=== PATIENT | male | born 1960 | race Caucasian/White ===

== ENCOUNTER → 2016-10-30 | Outpatient (CLI) | payer BC, OTHER ==
[~2016-10-30] MED LIST: IBUP-1050 PO
--- NOTE | 2016-10-30 09:37 | DIAGNOSTIC IMAGING REPORT ---
RIGHT KNEE 4 OR MORE CLINICAL HISTORY: RIGHT KNEE PAIN Right COMPARISON STUDY: None. FINDINGS: Right-sided bipartite patella. Mild cartilage space narrowing and tiny marginal osteophytes at the medial compartments of the knees. No fracture or dislocation. Small knee effusion. Tiny marginal osteophytes in the patella. IMPRESSION: Mild osteoarthritis within the medial compartment of the bilateral knees. Small right knee effusion. Electronically signed by: Chidi Watters M.D. 10/30/2016 9:35 AM Dictated Date/Time: 10/30/2016 9:28 AM
== END | disposition home or self-care (01) ==
LOC: C.RDSM 12:29
PROVIDERS: ATTEND Family Medicine
DX: M17.11 Unilateral primary osteoarthritis, right knee (principal); M17.12 Unilateral primary osteoarthritis, left knee

== ENCOUNTER → 2016-11-06 | Outpatient (CLI) | payer OTHER, BC ==
--- NOTE | 2016-11-06 14:28 | DIAGNOSTIC IMAGING REPORT ---
MRI OF THE RIGHT KNEE CLINICAL HISTORY: Right knee pain. Recent knee injury. COMPARISON STUDY: Radiographs of the right knee dated 10/30/2016. TECHNIQUE: MRI of the right knee was performed utilizing proton density, T1, and T2-weighted sequences in the axial, sagittal, coronal planes. IV contrast was not administered for this examination. FINDINGS: Menisci: There is a large oblique tear involving the body and posterior horn of the medial meniscus. The lateral meniscus is Intact. Ligaments: The anterior and posterior cruciate ligaments are intact. There is thickening and irregularity of the medial collateral ligament suggesting age indeterminant injury. The fibers are intact and there is no significant surrounding fluid. The lateral collateral ligament complex is preserved. Extensor mechanism: The extensor mechanism is intact. Hoffa's fat pad is normal in appearance. 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 There is no MRI evidence of fracture. There is mild (less than 50%) degenerative thinning and fissuring identified within the articular cartilage along the weightbearing surface in the medial and lateral compartments. This is greater medially. There is minimal cartilaginous irregularity seen along the lateral patellar facet at the site of the bipartite patella. The cartilage appears intact. There is significant marrow edema within the medial tibial plateau, with milder marrow edema seen within the medial femoral condyle. A small degenerative geode is identified within the posterolateral femoral condyle on axial image #11 with mild surrounding marrow edema. Joint effusion: There is a moderate joint effusion. Small joint bodies are questioned lung the medial femoral condyle on axial image #12. Soft tissues: A small popliteal cyst measures up to 3.7 cm. The musculature surrounding the knee joint is normal in bulk and signal intensity. There is mild prepatellar soft tissue edema, as well as deep soft tissue edema no medial knee. IMPRESSION: 1. There is a large oblique tear involving the body and posterior horn of the medial meniscus. 2. There is significant marrow edema identified within the medial tibial plateau with milder marrow edema seen in the medial femoral condyle. Although this could be on degenerative basis, the appearance is more typical for contusion. Clinical correlation will be required. 3. Joint effusion and popliteal cyst. Small joint bodies are questioned. 4. Findings suggest age indeterminate and possibly chronic low-grade injury of the medial collateral ligament. The fibers are intact. 5. The lateral meniscus, the lateral collateral complex, and the cruciate ligament are preserved. 6. 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 The underlying cartilage appears irregular but intact. 7. Mild arthritic change as above. Electronically signed by: Jose Damon M.D. 11/06/2016 2:26 PM Dictated Date/Time: 11/06/2016 2:17 PM
== END | disposition home or self-care (01) ==
LOC: C.MRI 13:01
PROVIDERS: ATTEND Family Medicine
DX: S83.241A Other tear of medial meniscus, current injury, right knee, initial encounter (principal); X58.XXXA Exposure to other specified factors, initial encounter

== ENCOUNTER → 2016-11-27 | Day surgery (SDC) | payer OTHER, BC ==
[2016-11-16 07:54] VITALS: Ht 182.9 cm; Wt 109.1 kg
[2016-11-22 12:07] LABS: HEMATOCRIT 47.1 % (42-52); MEAN CELL VOLUME 93.6 fL (80-100); MEAN CORPUSCULAR HEMOGLOBIN 33.4 pg (25-34); MEAN CORPUSCULAR HGB CONC 35.7 g/dl (32-36); MEAN PLATELET VOLUME 10.2 fL (7.4-10.4); PLATELET COUNT 236 K/uL (130-400); RED BLOOD COUNT 5.03 M/uL (4.7-6.1); WHITE BLOOD COUNT 7.76 K/uL (4.8-10.8)
[~2016-11-27] VITALS: Ht 182.9 cm; Wt 109.1 kg
[~2016-11-27] MED LIST changes: +ATROPINE SULFATE 0.1 MG/ML 5ML SYR IV PRN; +BUPIVACAINE/EPINEPHRINE 0.5% MPF 1:200,000 30 ML VIAL ONE; +CEFAZOLIN 2000 MG/60 ML D5W IV SCH; +DEXAMETHASONE SOD INJ 4 MG/ML VIAL ONE; +EpHEDrine SULFATE INJ 50 MG/ML AMP IV PRN; +EpINEphrine INJ 1MG/ML AMP 1 MG/ML AMP ONE; +FENTANYL CITRATE INJ 50 MCG/1 ML 2 ML VIAL IV PRN; +FENTANYL CITRATE INJ 50 MCG/1 ML 2 ML VIAL ONE; +FLUMAZENIL 0.1 MG/1 ML 10 ML VIAL IV PRN; +HYDROmorphone INJ 2 MG/ML SYR/VIAL IV PRN; +LABETALOL HCL IV 5 MG/ML 20ML IV PRN; +LACTATED RINGER'S 1000ML 1,000 ML IV SCH; +LIDOCAINE HCL 1% 20 ML VIAL ONE; +LIDOCAINE HCL 2% 2 ML VIAL (20MG/ML) ONE; +MEPERIDINE HCL 25 MG/ML CARP IV PRN; +MIDAZOLAM HCL 1 MG/ML 2ML VIAL ONE; +MoRPHine SULFATE 2 MG/ML CARP IV PRN; +MoRPHine SULFATE 4 MG/ML 1 ML CARP\\VIAL IV PRN; +NALOXONE HCL 0.4 MG/1 ML VIAL/CARP IV PRN; +ONDANSETRON INJ 2 MG/ML 2 ML VIAL IV PRN; +ONDANSETRON INJ 2 MG/ML 2 ML VIAL ONE; +OXYCODONE/ACETAMINOPHEN 5-325 TAB PO PRN; +PHENYLEPHRINE 100MCG/ML 5ML SYR IV PRN; +PROPOFOL IV EMULSION 10 MG/ML 20 ML VIAL IV ONE
--- NOTE | 2016-11-27 09:16 | History & Physical Bridge - [place] ---
H&P Re-Evaluation Bridge Note: I have examined the patient, reviewed the History & Physical and in the interval since the performance of the History & Physical I have noted the following changes of clinical significance: No changes noted
--- NOTE | 2016-11-27 10:36 | Discharge Instructions-SurgCtr ---
Discharge Instructions Date of Service November 27, 2016. Visit Reason for Visit: Right Knee Meniscus Tear;Pre-Op Discharge Discharge Diagnosis / Problem: Status post R knee Arthroscopy debridment, chondroplasty, loose body remova Discharge Goals Goal(s): Decrease discomfort, Improve function, Increase independence Activity Recommendations Activity Limitations: per Instructions/Follow-up section Exercise/Sports Limitations: gradually increase as tolerated May Resume Sexual Activity: when tolerated Shower/Bathe: may shower/bathe in 3 days Driving or Machine Use: Not while on narcotics, and should be walking normally Weightbearing Status: Right weightbearing (as tolerated) Anesthesia . Post Anesthesia Instructions: If you have had General Anesthesia or IV Sedation: * Do not drive today. * Resume driving when surgeon permits. * Do not make important decisions or sign legal documents today. * Call surgeon for: 1. Temperature elevations greater than 101 degrees F. 2. Uncontrollable pain. 3. Excessive bleeding. 4. Persistent nausea and vomiting. 5. Medication intolerance (nausea, vomiting or rash). * For nausea and vomiting use only clear liquids such as: tea, soda, bouillon until nausea subsides, then gradually increase diet as tolerated. * If you have any concerns or questions, call your surgeon's office. If physician is unavailable and it is an emergency, call 911 or go to the nearest emergency room. . Instructions / Follow-Up Instructions / Follow-Up Dr. Atkins in 10-15 days. PT in 2-3 days. Diet Recommendations Home Diet: resume previous diet Procedures Procedures Performed: Right Knee Arthroscopic Meniscus Debridement, Partial medial & lateral menisectomies, Chondroplasty, Loose body removal, Exam Under Anesthesia Pending Studies Studies pending at discharge: no Medical Emergencies . Who to Call and When: Medical Emergencies: If at any time you feel your situation is an emergency, please call 911 immediately. . Non-Emergent Contact Non-Emergency issues call your: Surgeon Call Non-Emergent contact if: temperature is above 101.5, your pain is not controlled, wound has increased drainage, wound has increased redness . . "Provider Documentation" section prepared by Stone Atkins. .
--- NOTE | 2016-11-27 10:39 | [facility] Operative Report ---
Operative Report Operative Date November 27, 2016. Pre-Operative Diagnosis Right knee medial meniscus tear, chondromalcia, synovitis, loose body Post-Operative Diagnosis same with synovitis, loose bodies, and lateral meniscus tear. Procedure(s) Performed 1) Right Knee Arthroscopic Chondroplasty: Patella & MFC, & partial Medial meniscectomy. 2) Loose body removal. 3) Partial Lateral Meniscectomy. 4) Exam Under Anesthesia. Surgeon Dr Atkins Hiv Counselor Surgeon(s) Misael Mathew PA-C Estimated Blood Loss 3 ml Findings The right knee was examined under anesthesia. Range of motion was 0-130. Ligamentous examination exhibited: stable Sean, posterior drawer, varus and valgus stress at 0 & 30 degrees. ARTHROSCOPIC FINDINGS: There was significant synovitis in the suprapatellar pouch. 1) PATELLOFEMORAL JOINT: The articular cartilage of the Patella had Outerbridge type II changes and Trochlea was intact. 2) GUTTERS: Multiple loose bodies in the lateral gutter. 3) MEDIAL COMPARTMENT: The articular cartilage of the femur had type II changes and Tibia was intact. The medial meniscus had a degenerative tear at the posterior horn. 4) ACL/PCL: They were both visualized and probed to be intact. 5) LATERAL COMPARTMENT: The lateral compartment was then entered in a figure-of- four position. The femoral and tibial articular cartilage was normal. The lateral meniscus frayed at the posterior horn. There were multiple loose bodies in the lateral compartment. Fluids (cc crystalloids) 650 Specimens 0 Drains n/a Anesthesia LMA Complication(s) None Disposition Recovery Room / PACU (Stable) Implants n/a Indications This is a 56-year-old male who has clinical and MRI findings consistent with meniscus tear, possible loose bodies, and chondromalacia. I recommended that a right knee arthroscopy be performed with meniscus debridement, possible chondroplasty. The patient understands the risks of surgery, which include but not limited to: bleeding, infection, re-operation, damage to nerves and arteries , continued knee pain, progression of OA, DVT, and a 2-5% risk of becoming worse after surgery. The patient understands all of these instructions and explanations, all of his questions have been satisfactorily addressed and the patient has elected to proceed. Informed consent was signed. Description of Procedure The patient was taken to the Operating Room and placed in the supine position after general anesthetic was administered. My initials and a multidisciplinary time-out were used to identify the right leg as the correct operative limb. Prior to the incision, 2 grams of intravenous Ancef was given. The right knee was then injected with 20cc of a 50:50 mix of 1% Lidocaine plain and 0.5% Bupivacaine with epinephrine in a sterile fashion using the superolateral portal. The right leg was then prepped and draped in a standard sterile fashion. The anterolateral, anteromedial, and superolateral portals were injected with the 50:50 mixture noted above, for a total of 10cc, in the standard fashion. An anterolateral arthroscopic portal was established with an 11-blade. Next, the arthroscope was introduced into the knee. A diagnostic arthroscopy commenced and both the superolateral and anteromedial portals were established under direct visualization using a spinal needle followed by an 11 blade in the standard fashion. The above findings were observed during the diagnostic arthroscopy. The synovitis and anterior fat pad were debrided as they were encounter with mechanical shaver. The articular cartilage damage was debrided back to stable margins as they were encountered with mechanical shaver. The medial and lateral meniscus tears were evaluated and found to be irreparable and was debrided back to stable margin with mechanical shaver. The knee was copiously irrigated. The arthroscopic instruments were then removed. The portals were closed with 3-0 Prolene in a standard fashion. The wound was dressed with Xeroform gauze, sterile gauze, ABDs, sterile Webril, and a foot to thigh Aldo bandage. The patient was then transferred to the Recovery Room in stable condition. The sponge and needle counts were correct. Post-op Instructions: The patient will be WBAT. The patient may remove the operative dressing on Post -Op Day #2 and apply Band-Aids to the wounds. The patient may shower in 72 hours and is to wear the DONA for 2 weeks on the operative limb. The patient is to use the pain medicine as needed and take the ASA for 2 weeks. The patient was also given a handout for home quad strengthening and seated self-assisted ROM exercises, which they may begin tomorrow. The patient was given a prescription for PT and is scheduled for an appointment later this week. The patient is to follow up with me in 10-15 days. I attest to the content of the Intraoperative Record and any orders documented therein. Any exceptions are noted below.
--- NOTE | 2016-11-27 10:45 | [facility] Operative Report ---
Operative Report Operative Date November 27, 2016. Pre-Operative Diagnosis Right knee medial meniscus tear, chondromalcia, synovitis, loose body Post-Operative Diagnosis same with synovitis, loose bodies, and lateral meniscus tear. Procedure(s) Performed 1) Right Knee Arthroscopic Chondroplasty: Patella & MFC, & partial Medial meniscectomy. 2) Loose body removal. 3) Partial Lateral Meniscectomy. 4) Exam Under Anesthesia. Surgeon Dr Atkins Social Services Manager Surgeon(s) Misael Mathew PA-C Estimated Blood Loss 3 ml Findings same Fluids (cc crystalloids) 650 Specimens 0 Drains none Anesthesia general Complication(s) None Disposition Recovery Room / PACU Implants none Indications continued right knee pain, MRI obtained, surgery recommended, consents signed. Description of Procedure taken to the OR, prepped and draped, I was present the entire case, please see Dr. Atkins's note for further detail I attest to the content of the Intraoperative Record and any orders documented therein. Any exceptions are noted below.
[2016-11-27 11:25] VITALS: TEMP 36.7
--- NOTE | 2016-11-27 11:46 | Anesthesia Progress Nt - [facility] ---
Anesthesia Post Op Note Date & Time November 27, 2016 at 11:47 Vital Signs Pain Intensity: 3 Vital Signs Past 12 Hours Date Time Temp Pulse Resp B/P Pulse Ox O2 Delivery O2 Flow Rate FiO2 11/27/16 11:25 36.7 82 16 142/88 96 Room Air 11/27/16 11:17 36.7 11/27/16 11:16 80 14 93 11/27/16 11:16 81 14 11/27/16 11:15 147/102 11/27/16 11:11 78 12 11/27/16 11:11 78 12 97 11/27/16 11:10 139/90 11/27/16 11:06 81 13 11/27/16 11:06 83 13 93 11/27/16 11:05 138/89 11/27/16 11:01 77 10 96 11/27/16 11:01 78 10 11/27/16 11:00 136/88 11/27/16 10:56 80 10 95 11/27/16 10:56 80 10 11/27/16 10:55 151/97 11/27/16 10:51 82 7 127/77 96 11/27/16 10:51 82 7 11/27/16 10:45 36.7 80 12 147/90 96 Diffusion Mask 5 11/27/16 07:24 36.9 71 18 139/91 95 Room Air Notes Mental Status: alert / awake / arousable, participated in evaluation Pt Amnestic to Procedure: Yes Nausea / Vomiting: adequately controlled Pain: adequately controlled Airway Patency, RR, SpO2: stable & adequate BP & HR: stable & adequate Hydration State: stable & adequate Anesthetic Complications: no major complications apparent
[2016-11-27 12:20] VITALS: BP 145/87; PULSE 70; O2SAT 94
== END | disposition home or self-care (01) ==
LOC: X.SURG 07:14
PROVIDERS: ATTEND Orthopaedic Surgery Sports Medicine
DX: S83.241A Other tear of medial meniscus, current injury, right knee, initial encounter (principal); S83.281A Other tear of lateral meniscus, current injury, right knee, initial encounter; M94.261 Chondromalacia, right knee; M65.861 Other synovitis and tenosynovitis, right lower leg; E66.9 Obesity, unspecified; X58.XXXA Exposure to other specified factors, initial encounter